=== PATIENT | male | born 1980 | race Caucasian/White ===

== ENCOUNTER 2020-05-18 10:22 | Outpatient (REF) | payer BC, SELFPAY | END 2020-05-18 10:23 | disposition home or self-care (01) | LOC: HO.LAB 10:22 | PROVIDERS: Visit Provider Internal Medicine | DX: Z20.828 Contact with and (suspected) exposure to other viral communicable diseases (principal) | CPT/HCPCS: C9803; U0003 ==

== ENCOUNTER 2020-05-29 10:29 | Outpatient (REF) | payer BC, SELFPAY | END 2020-05-29 10:30 | disposition home or self-care (01) | LOC: HO.LAB 10:29 | PROVIDERS: Visit Provider Internal Medicine | DX: Z20.828 Contact with and (suspected) exposure to other viral communicable diseases (principal) | CPT/HCPCS: 36415; C9803; U0003 ==

== ENCOUNTER 2020-06-20 07:42 | Outpatient (REF) | payer BC, SELFPAY | END 2020-06-20 07:43 | disposition home or self-care (01) | LOC: HO.LAB 07:42 | PROVIDERS: PCP Internal Medicine; Visit Provider Internal Medicine | DX: Z20.822 Contact with and (suspected) exposure to COVID-19 (principal) | CPT/HCPCS: 36415; C9803; U0003 ==

== ENCOUNTER 2020-07-20 08:51 | Outpatient (REF) | payer BC, SELFPAY ==
--- NOTE | ~2020-07-20 | US_ITS ---
EXAMINATION: US ABDOMEN COMPLETE CLINICAL INFORMATION: Elevated liver enzymes. Hematuria. COMPARISON: None. TECHNIQUE: Real-time imaging of the abdominal viscera. FINDINGS: PANCREAS: The visualized head and body of the pancreas appears unremarkable. Remainder of the pancreas is obscured by bowel gas. ABDOMINAL AORTA: The proximal, mid, and distal segments are normal in caliber. INFERIOR VENA CAVA: Visualized portions are normal. LIVER: Diffuse increased echogenicity. No focal hepatic lesion. There is no intrahepatic biliary duct dilatation seen. GALLBLADDER: Normal. The gallbladder is physiologically distended without evidence of stones, sludge, polyps, wall thickening or pericholecystic fluid. COMMON BILE DUCT: Normal in caliber measuring 0.3 cm in diameter. RIGHT KIDNEY: Normal. No hydronephrosis. No renal calculi or focal parenchymal lesions. The kidney measures 14.1 cm in maximum dimension. LEFT KIDNEY: Normal. No hydronephrosis. No renal calculi or focal parenchymal lesions. The kidney measures 13.3 cm in maximum dimension. SPLEEN: Normal. The spleen measures 12 cm in maximum dimension. FREE FLUID: None. US/US abdomen complete IMPRESSION: 1. There is generalized increase in hepatic echotexture, more commonly seen with hepatic steatosis. No focal hepatic mass or intrahepatic biliary duct dilatation is seen. 2. Partially visualized pancreas. Visualized portion of the pancreas appears unremarkable. 3. Otherwise unremarkable study.
== END 2020-07-20 08:52 | disposition home or self-care (01) ==
LOC: HO.HMGCX 08:51
PROVIDERS: Visit Provider Internal Medicine
DX: R31.9 Hematuria, unspecified (principal); R79.89 Other specified abnormal findings of blood chemistry
CPT/HCPCS: 76700

== ENCOUNTER 2020-08-14 07:38 | Outpatient (REF) | payer BC, SELFPAY ==
--- NOTE | ~2020-08-14 | XR_ITS ---
EXAMINATION: XR LUMBOSACRAL SPINE WITH OBLIQUES CLINICAL INFORMATION: Low back pain and sciatica COMPARISON: None TECHNIQUE: AP, both oblique, and lateral views of the lumbar spine. Lateral view of the lumbosacral junction. FINDINGS: There may be a transitional vertebral body segment or lumbarization of S1. Bone alignment is normal. No fracture or dislocation is seen. There is degenerative disc disease at L5-S1 and the S1-S2 or transitional segment sacral articulation. There is arthritis at the transitional transverse process articulation with the sacrum bilaterally. No pars defect is seen. XR/XR lumbar spine 4V min IMPRESSION: Probable transitional vertebral body segment with lumbarization of S1. Lower lumbar sacral spine degenerative disc disease.
== END 2020-08-14 07:39 | disposition home or self-care (01) ==
LOC: HO.LAB 07:38
PROVIDERS: Absent Provider Internal Medicine; PCP Internal Medicine; Visit Provider Internal Medicine
DX: M54.30 Sciatica, unspecified side (principal); Z20.822 Contact with and (suspected) exposure to COVID-19
CPT/HCPCS: 36415; 72110; C9803; U0003; U0005

== ENCOUNTER → 2020-08-23 08:14 | Outpatient (BNVA) | payer BC, SELFPAY | PROVIDERS: PCP Internal Medicine; Visit Provider Physician Assistant ==

== ENCOUNTER 2020-09-15 08:36 | Outpatient (REF) | payer BC, SELFPAY ==
[2020-09-15 09:03] LABS: COVID-19 Test Negative (Negative)
== END 2020-09-15 08:37 | disposition home or self-care (01) ==
LOC: HO.LAB 08:36
PROVIDERS: Visit Provider Internal Medicine
DX: Z20.822 Contact with and (suspected) exposure to COVID-19 (principal)
CPT/HCPCS: 36415; 87635; C9803

== ENCOUNTER 2020-10-19 08:02 | Day surgery (SDC) | payer BC, SELFPAY ==
[2020-10-12 15:26] VITALS: BMI 32.5
--- NOTE | 2020-10-17 15:02 | P.CONAN_ITS ---
Documented by User: Jazmín Figueroa 10/17/20 15:03 HPI - Anesthesia Eval Consult details Narrative: 40yo M for Colonoscopy PMFSH Active Problems Active Problems: All Active Problems (Updated 10/12/20 @ 15:00 by Ena Seay) Hematochezia (Acute) Past Medical History Medical History Allergic rhinitis due to pollen Elevated liver function tests Hematochezia Family History Family History Father Colon cancer Surgical History Surgical History History of esophagogastroduodenoscopy (EGD) Hx of appendectomy Social History Social History Household Members: Family Alcohol intake: current Alcohol intake frequency: a few times a month Use of substances other than those prescribed or required for medical reasons: No Have you been hit, kicked, punched, or otherwise hurt by someone within the past year? If so, by whom?: No Are you DNR?: No Advance Directives: No Advance Directives Information Provided: No Advance Directives on File: No Recently lost weight without trying: No Eating poorly because of decreased appetite: No Nutrition Risks: No Nutritional Risk Current occupational status: employed Current occupation: [employer] Allergies Allergy/AdvReac Type Severity Reaction Status Date / Time No Known Allergies Allergy Verified 10/19/20 08:19 Home Medications Medication Instructions Recorded Confirmed Last Taken Type albuterol sulfate 2 puff PO Q4-6H PRN 10/12/20 10/12/20 Unknown History fluticasone propionate [Flonase] 1 spray INTRANASAL DAILY 10/12/20 10/12/20 Unknown History Exam Exam Date and Time: October 17, 2020 1502 Height,Weight and Vital Signs: Height 5 ft 9 in Weight 99.79 kg Assessment and Plan Assessment Anesthesia Assessment: Chart Reviewed Documented by User: Abisai Lin MD 10/19/20 08:35 [facility] Past Medical History Medical History Allergic rhinitis due to pollen Elevated liver function tests Hematochezia Family History Family History Father Colon cancer Surgical History Surgical History History of esophagogastroduodenoscopy (EGD) Hx of appendectomy Social History Social History Household Members: Family Alcohol intake: current Alcohol intake frequency: a few times a month Use of substances other than those prescribed or required for medical reasons: No Have you been hit, kicked, punched, or otherwise hurt by someone within the past year? If so, by whom?: No Are you DNR?: No Advance Directives: No Advance Directives Information Provided: No Advance Directives on File: No Recently lost weight without trying: No Eating poorly because of decreased appetite: No Nutrition Risks: No Nutritional Risk Current occupational status: employed Current occupation: [employer] Allergies Allergy/AdvReac Type Severity Reaction Status Date / Time No Known Allergies Allergy Verified 10/19/20 08:19 Home Medications Medication Instructions Recorded Confirmed Last Taken Type albuterol sulfate 2 puff PO Q4-6H PRN 10/12/20 10/12/20 Unknown History fluticasone propionate [Flonase] 1 spray INTRANASAL DAILY 10/12/20 10/12/20 Unknown History Exam Airway Mallampati Class: II TM Dist: >3cm Neck ROM: Full Assessment and Plan Assessment Anesthesia Assessment: Anesthesia Plan Discussed, PAT Visit and Chart Reviewed Final Anesthetic Review NPO: Yes ASA Class: II Final Preanesthetic Review: No Changes in Pt Med Stat, Meds/Allgs Chart Reviewed, Consent Obtained/Reviewed and Anes Risks/Benef Reviewed Patient Risk: Low Procedure Risk: Low Anesthetic Plan Anesthetic Plan: MAC: Disposition: Standard PACU
[2020-10-19 08:20] VITALS: BP 124/76; PULSE 95; RESP 15; TEMP 36.1; O2SAT 97
[2020-10-19] MEDS: Lactated Ringers 1,000 ML 100 ML IVCONT (08:45)
--- NOTE | 2020-10-19 08:52 | MHC.SHP ---
Pre-Procedural Eval Section B Chief Complaint: Hematochezia Details of Present Illness: RLQ pain Relevant Family History (Specify if Yes): No Relevant Social History: None Present Medications: see Short Stay Collaborative assessment Medical History: Significant History (anal fissure) History of Previous Operations: No relevant previous surgery Allergies: Allergies Allergy/AdvReac Type Severity Reaction Status Date / Time No Known Allergies Allergy Verified 10/19/20 08:19 Review of Systems Sugical H&P ROS: Negative: Constitution, Cardiovascular, Respiratory, Neurological, Psychiatric, Hem-Onc, Allergic/Immunologic, Gastrointestinal, Genitourinary, Musculoskeletal, Integumentary, Endocrine and Eyes/Ears/Nose/Throat Exam Surgical H&P Exam: Normal: HEENT, Normal: Heart, Normal: Lungs, Normal: Extremities, Normal: Abdomen, Normal: Skin and Normal: Neurological Plan Diagnosis/Plan: Unchanged I have reviewed the history and physical and performed a pertinent physical examination on my patient. No changes have occurred unless specified.
--- NOTE | 2020-10-19 09:17 | P.BOP_ITS ---
Brief Operative Note Date of Service: 10/19/20 Pre-op diagnosis: blood in stool, RLQ pain Post-op diagnosis: same Procedure: see op note Surgeon: Eloina Angel MD Anesthesia: MAC Was an Sewing Machine Repairer Helper used for this Procedure?: No Estimated blood loss (mL): 0 Condition: stable Disposition: PACU
--- NOTE | 2020-10-19 09:18 | P.OP_ITS ---
Operative Note Operative Note Date of Service: 10/19/20 Narrative: Operative Information Procedure Description: Colonoscopy COLONOSCOPY Instrument: Olympus variable stiffness pediatric scope 190L Colonoscopy Monitoring: Vital signs and clinical assessment, continuous EKG monitoring, Pulse oximetry, Carbon Dioxide monitoring and blood pressure monitoring were done throughout the procedure. Colon withdrawal time was 11 minutes. Procedure: The patient was placed in the left lateral decubitis position and pre-procedure medications were administered. After a digital rectal examination of the ano-rectum, the video colonoscope was inserted into the rectum and advanced through the colon to the cecum/TI. The colonoscope was slowly withdrawn in a retrograde panoramic fashion and the colon mucosa was carefully examined including a retroflexed view of the rectum. Findings and interventions are described below. Procedure Difficulty:easy Findings: Terminal Ileum-scattered ileitis, bx taken Cecum:normal, bx taken Ascending Colon: normal, bx taken Transverse Colon -normal Descending Colon:normal Sigmoid Colon: normal Rectum: Retroflexion with small internal hemorrhoids, grade II Anorectum - internal hemorrhoids seen at anal verge Colon preparation: [place] Bowel Preparation Scale Right colon; 3 Transverse colon: 3 Left colon; 3 (0 = Unprepared colon segment with mucosa not seen due to solid stool that cannot be cleared. 1 = Portion of mucosa of the colon segment seen, but other areas of the colon segment not well seen due to staining, residual stool and/or opaque liquid. 2 = Minor amount of residual staining, small fragments of stool and/or opaque liquid, but mucosa of colon segment seen well. 3 = Entire mucosa of colon segment seen well with no residual staining, small fragments of stool or opaque liquid) Impression and Post Procedure Diagnosis: ileitis internal hemorrhoids Plan: High fiber diet leaflet Avoid straining at stool, epsom salts and sitz bath, anusol supps or cream Repeat Colonoscopy aged 45 or earlier if clinically indicated check nsaid usage history, might need CTe or VCE for further work up for crohns Above findings were reviewed with the patient and relevant handouts were provided if indicated.
[2020-10-19 09:47] VITALS: BP 118/78; PULSE 85; RESP 16; TEMP 36.2; O2SAT 98
[2020-10-19 10:02] VITALS: BP 118/76; PULSE 82; RESP 18; O2SAT 97
[2020-10-19 10:13] VITALS: TEMP 36.6
== END 2020-10-19 10:38 | disposition home or self-care (01) ==
PROVIDERS: PCP Internal Medicine; Visit Provider Internal Medicine Gastroenterology
PROC: 0DJD8ZZ Inspection of Lower Intestinal Tract, Via Natural or Artificial Opening Endoscopic (ICD-10-PCS; CPT 45378; principal; 2020-10-19 09:30)
DX: K92.1 Melena (principal); K50.00 Crohn's disease of small intestine without complications; K64.1 Second degree hemorrhoids; R79.89 Other specified abnormal findings of blood chemistry; J30.9 Allergic rhinitis, unspecified; Z79.899 Other long term (current) drug therapy
CPT/HCPCS: 45380; 88305

== ENCOUNTER 2020-11-08 08:37 | Outpatient (REF) | payer BC, SELFPAY ==
--- NOTE | 2020-11-08 08:40 | PFT_ITS ---
INDICATION: Wheezing. SPIROMETRY: The FEV1 to FVC of 83% with an FEV1 of 4.02 L, which is 97% predicted, an FVC of 4.85 L, which is 95% predicted. No significant response to bronchodilators noted. Normal maximum voluntary ventilation. LUNG VOLUMES: Total lung capacity 93% predicted with an expiratory reserve volume of 65% predicted. DIFFUSION CAPACITY: DLCO 96% predicted. Flow volume loop appears to be consistent with normal lung mechanics. INTERPRETATION: No obstructive nor restrictive ventilatory defects identified. No significant response to bronchodilators noted. Normal lung volumes and normal diffusion capacity. This is consistent with normal lung mechanics. Consider a methacholine challenge to further address the question of hyper-reactive airways and asthma. Gino Muniz MD MR/MODL / [id number]
== END 2020-11-08 08:38 | disposition home or self-care (01) ==
LOC: HO.RESP 08:37
PROVIDERS: PCP Internal Medicine; Visit Provider Internal Medicine
DX: R06.2 Wheezing (principal)
CPT/HCPCS: 94060; 94727; 94729

== ENCOUNTER → 2020-12-07 08:03 | Outpatient (BNVA) | payer BC, SELFPAY | PROVIDERS: PCP Internal Medicine; Visit Provider Physician Assistant ==

== ENCOUNTER 2024-01-29 11:49 | Outpatient (REF) | payer BC, SELFPAY ==
[2024-01-29 13:37] LABS: MANUAL DIFF FLAG NO
[2024-01-29 13:44] LABS: Basophils Percent Auto 0.3 % (0-2); Eosinophils Absolute Auto 0.2 X10*3/uL (0.0-0.4); Eosinophils Percent Auto 3.2 % (0-4); Hematocrit 43.4 % (42.0-52.0); Hemoglobin 14.6 g/dl (14.0-18.0); Imm Gran Abs Auto 0.02 X10*3/uL (0.00-0.03); Imm Gran Pct Auto 0.3 % (0.0-0.4); Lymphocytes Absolute Auto 1.4 X10*3/uL (1.2-4.9); Lymphocytes Percent Auto 21.7 % (20-40); Mean Corpuscular HGB Conc 33.6 g/dl (31.0-36.0); Mean Corpuscular Hemoglobin 30.1 pg (27.0-33.0); Mean Corpuscular Volume 89.5 fL (80.0-98.0); Mean Platelet Volume 10.7 fL (9.4-12.4); Monocytes Absolute Auto 0.6 X10*3/uL (0.1-1.2); Monocytes Percent Auto 9.4 % (2-11); Neutrophils Absolute Auto 4.3 x10*3/uL (2.0-8.3); Neutrophils Percent Auto 65.1 % (45-73); Platelet Count 258 X10*3/uL (160-400); Red Blood Count 4.85 X10*6/uL (4.60-5.80); Red Cell Distribution Width 13.4 % (11.0-16.0); White Blood Count 6.6 X10*3/uL (4.8-10.8)
[2024-01-29 13:57] LABS: Alanine Aminotransferase 18 U/L (0-40); Albumin Level 4.4 g/dL (3.5-5.0); Alkaline Phosphatase 61 U/L (39-117); Anion Gap 11 (12-20); Aspartate Amino Transferase 13 U/L (5-37); Bilirubin Total 0.4 mg/dL (0.0-1.0); Blood Urea Nitrogen 15 mg/dL (9-16); Calcium 9.5 mg/dL (8.4-10.2); Carbon Dioxide 22 mmol/L (22-29); Chloride 110 mmol/L (96-108); Estimated Glomerular Filt Rate > 60; Glucose Random 93 mg/dL (60-115); Lipase 39 U/L (8-78); Potassium 3.7 mmol/L (3.3-5.1); Sodium 139 mmol/L (135-145); Total Protein 7.7 g/dL (6.5-8.0)
== END 2024-01-29 11:50 | disposition home or self-care (01) ==
LOC: HO.HHCL 11:49
PROVIDERS: Visit Provider Internal Medicine
DX: R19.7 Diarrhea, unspecified (principal)
CPT/HCPCS: 36415; 80053; 83690; 85025

== ENCOUNTER 2024-01-30 06:22 | Outpatient (REF) | payer BC, SELFPAY ==
[2024-01-30 12:48] LABS: Adenovirus F 40/41 Not Detected (Not Detect.); Astrovirus Not Detected (Not Detect.); Campylobacter Not Detected (Not Detect.); Cryptosporidium Not Detected (Not Detect.); Cyclospora cayetanensis Not Detected (Not Detect.); E. coli EAEC Not Detected (Not Detect.); E. coli EPEC Not Detected (Not Detect.); E. coli ETEC Not Detected (Not Detect.); E. coli STEC Not Detected (Not Detect.); Entamoeba histolytica Not Detected (Not Detect.); Giardia lamblia Not Detected (Not Detect.); Norovirus GI/GII Not Detected (Not Detect.); Plesiomonas shigelloides Not Detected (Not Detect.); Rotavirus A Not Detected (Not Detect.); Salmonella Not Detected (Not Detect.); Sapovirus Not Detected (Not Detect.); Shigella sp./EIEC Not Detected (Not Detect.); Vibrio Not Detected (Not Detect.); Vibrio Cholerae Not Detected (Not Detect.); Yersinia enterocolitica Not Detected (Not Detect.)
== END 2024-01-30 06:23 | disposition home or self-care (01) ==
LOC: HO.HHCL 06:22
PROVIDERS: Visit Provider Internal Medicine
DX: R19.7 Diarrhea, unspecified (principal)
CPT/HCPCS: 87507

== ENCOUNTER 2024-08-27 09:08 | Outpatient (REF) | payer BC, SELFPAY ==
--- OUTSIDE RECORDS SUMMARY | 2024-08-27 09:54 | XMS_ITS | Encounter Summary ---
Author Organization [employer] [facility] Address [address] [place] [address] [address] [place] [address] Care Team Providers Care Box Inspector Name Role Phone Lulu Muniz MD Primary Care Provider + Encounter Details Date Type Department Care Team (Latest Contact Info) Description 02/08/2019 Abstract C CONVERSIONS Dental, Provider, DDS Social History Tobacco Use Types Packs/Day Years Used Date Smoking Tobacco: Never Assessed Sex and Gender Information Value Date Recorded Sex Assigned at Male 03/25/2022 10:36 AM EDT Legal Sex Male 10:36 AM EDT Gender Identity Male 03/25/2022 10:36 AM EDT Sexual Orientation Straight 03/25/2022 10 :36 AM EDT documented as of this encounter Plan of Treatment Not on file documented as of this encounter Visit Diagnoses Not on filedocumented in this encounter Care Teams Box Inspector Relationship Specialty Start Date End Date Lulu Muniz MD [address] [place] [id number] PCP - General Family Medicine 06/02/20 documented as of this encounter
--- OUTSIDE RECORDS SUMMARY | 2024-08-27 09:55 | XMS_ITS ---
Author Organization [facility] Address [address] [place] [address] Care Team Providers Care Design Director Name Role Phone Nichole Hernandez [phone] Encounters Encounter Location Date Provider Diagnosis [facility] [address] [place] [address] 08/16/2024 Nichole Hernandez Hyperlipidemia, unspecified hyperlipidemia type E78.5 and Fatty liver K76.0 Assessments Encounter Date Diagnosis (ICD Code) Assessment Notes Treatment Notes Treatment Clinical Notes Section Notes 08/16/2024 Hyperlipidemia, unspecified hyperlipidemia type (ICD-10 - E78.5) 08/16/2024 Fatty liver (ICD-10 - K76.0) Plan Of Treatment Future Test Test Name Order Date CMP([facility]) 08/16/2024 Lipid Profile ([facility]) 08/16/2024 Progress Notes * Samantha CULVERB:06/1980 (44 yo M)Acc No.[id number]:08/16/2024 Patient:?Vania CULVER :1980???Age:44 Y???Sex:Male Address: [place], [address] Subjective: * Chief Complaints: * ??? * Medical History:? * Surgical History:? * Hospitalization/Major Diagno stic Procedure:? * Medications:? Objective: * Vitals:? * Physical Examination:? * ? Assessment: * Assessment: 1.?Hyperlipidemia, unspecifi ed hyperlipidemia type - E78.5???2.?Fatty liver - K76.0??? Plan: * Treatment: 2.?Fatty liver?LAB: Lipid Profile ([facility]) (Ordered for 08/16/2024) ?LAB: CMP([facility]) (Ordered for 08/16/2024) * Procedure Codes:? * true * Date:? Generated for Isacc hill/Jose/Philippe on:?08/27/2024 09:54 AM EDT
--- OUTSIDE RECORDS SUMMARY | 2024-08-27 09:55 | XMS_ITS | Encounter Summary ---
Author Organization [facility] Address [address] [place] [address] [address] [place] [address] Care Team Providers Care Health And Wellness Coordinator Name Role Phone Lulu Muniz MD Primary Care Provider + Encounter Details Date Type Department Care Team (Latest Contact Info) Description 10/10/2020 Abstract [facility] CONVERSIONS Dental, Provider, DDS Social History Tobacco [...] on filedocumented in this encounter Care Teams Health And Wellness Coordinator Relationship Specialty Start Date End Date Lulu Muniz MD [address] [place] [id number] PCP - General Family Medicine 06/02/20 documented as of this encounter
--- OUTSIDE RECORDS SUMMARY | 2024-08-27 09:55 | XMS_ITS ---
Author Organization [facility] Address [address] [place] [address] Care Team Providers Care Varnishing Unit Tool Setter Name Role Phone Nichole Hernandez Paulina [phone] Medications Medication SIG (Take, Route, Frequency, Duration) Notes Start Date End Date Status Wegovy 1.7 MG/0.75ML 1.7 mg injection Subcutaneous weekly for 30 days 4pens =1 box = 30 day supply 11/04/2023 Active Encounters Encounter Location Date Provider Diagnosis [facility] [address] [place] [address] 06/23/2024 Nichole Hernandez Plan Of Treatment Medication Medication Name Sig Start Date Stop Date Notes Wegovy 1.7 MG/0.75ML 1.7 mg injection Subcutaneous weekly for 30 days 11/04/2023 4pens =1 box = 30 day supply Progress Notes * Ada CULVER:06/1980 (44 yo M)Acc No.[id number]:06/23/2024 Patient:?Vania CULVER :1980???Age:44 Y???Sex:Male Address: [place], [address] * Refills? Refill Wegovy Solution Auto-injector, 1.7 MG/0.75ML, Subcutaneous, 3, 1.7 mg injection, weekly, 30 days, Refills=0 * true * Date:? Generated for Printi ng/Faxing/eTransmitting on:?08/27/2024 09:54 AM EDT
--- OUTSIDE RECORDS SUMMARY | 2024-08-27 09:55 | XMS_ITS | Clinical Summary ---
Author Organization [employer] Address [address] [place] [address] 7 [place] [address] Care Team Providers Care Forest Nursery Worker Name Role Phone Lulu Muniz MD Primary Care Provider + Allergies No known active allergies Medications fluticasone (Flonase Sensimist) 27.5 MCG/SPRAY nasal spray Active Ibuprofen (Advil Migraine) capsule 5 Active azelastine (Astelin) 0.1 % nasal sprayIndication s:Chronic rhinitis Administer 1 spray into each nostril 2 times daily. Use in each nostril as directed 30 mL 12 3 Active loratadine (Claritin) 10 MG tabletIndicatio ns:Chronic rhinitis Take 1 tablet (10 mg) by mouth in the morning. 30 tablet 3 Active Active Problems Problem Noted Date Diagnosed Date LLQ abdominal pain 01/29/2024 Assessment & Plan (01/29/2024 12:01 PM EDT): Patient here for a sick visit with c/o new onset of Abdominal pain, associated with N/V/D since last Fridays. Pt recalls eating at [employer] but he was the only one who felt sick the next day. He also reports having been on a weight loss regimen with Wegovy x 5 months. Pt describes the pain as severe at times, mainly localized on his mid abdomen, periumbilical and LLQ area. Pt reports Nausea and Vomiting but is able to drink fluids and keep them down. Diarrhea is described as watery and mucous, NO blood. Etiology ? Viral Gastro VS. Acute diverticulitis, but given his Hx of taking Wegovy need to rule out Acute Pancreatitis as well Plan: Increase PO fluids as tolerated, Zofran PRN for Nausea. Obtain CBC, Lipase, Stool Cx. C. Diff. CT of Abdomen and Pelvis with IV Contrast. Pt instructed to present to the nearest ER if symptoms do not improve or if his abdominal pain worsens. Patient verbalized understanding. Facial paresthesia 07/03/2022 Allergic rhinitis due to pollen 07/03/2022 Gingival cyst of adult 07/03/2022 Hematochezia 07/03/2022 Incontinence of feces with fecal urgency 023 Internal hemorrhoids 07/03/2022 Assessment & Plan (07/03/2022 11:46 AM EST): Use cortisone/pramoxine rectal cream Irritable bowel syndrome with diarrhea Assessment & Plan (07/03/2022 11:46 AM EST): Controlled with diet. Chronic rhinitis 07/03/2022 Left inguinal pain 07/03/2022 Wart on thumb 07/03/2022 Acute back pain with sciatica 07/02/2022 Elevated liver function tests 07/02/2022 IFG (impaired fasting glucose) 07/02/2022 Assessment & Plan (07/03/2022 11:44 AM EST): Fairly well controlled. A1c is less than 5.7 Counseled re more frequent low calorie/carb meals. Encouraged physical activity as tolerated. FU in 6 months with labs Sciatic leg pain 07/02/2022 Assessment & Plan (07/03/2022 11:43 AM EST): Stretching exercises discussed with patient to do at home Refer to PT Use Tylenol prn Social History Tobacco Use Types Packs/Day Years Used Date Smoking Tobacco: Never Passive Smoke Exposure: Never Smokeless Tobacco: Never Tobacco Cessation:Counseling Given: Not Answered Alcohol Use Standard Drinks/Week Comments Yes 0 (1 standard drink = 0.6 oz pur e alcohol) Rare once every 6 month Housing Stability Answer Date Recorded What is your housing situation today? I have brenton alvarez 03/31/[address] you li ve. Do you have problems with any of the following? None of the above 03/31/2023 Food Insecurity Answer Date Recorded Within the past 12 months, y ou worried that your food would run out before you got money to buy more: Never True 03/31/2023 Within the past 12 months,th e food you bought just didn't last and you didn't have enough money to get more: Never True 10/2022 Transportation Answer Date Recorded In the past 12 months, has l ack of transportation kept you from medical appts, meetings, work or from getting things needed for daily living? No 03/31/2023 Utilities Answer Date Recorded In the past 12 months, has t he electric, gas, oil or water company threatened to shut off services in your home? No 03/31/2023 Depression Answer Date Recorded Patient Health Questionnaire-2 Score 0 07/02/2022 Sex and Gender Information Value Date Recorded Sex Assigned at Male 03/25/2022 10:36 AM EDT Legal Sex Male 10:36 AM EDT Gender Identity Male 03/25/2022 10:36 AM EDT Sexual Orientation Straight 03/25/2022 10 :36 AM EDT Last Filed Vital Signs Vital Sign Reading Time Taken Comments Blood Pressure 129/79 01/29/2024 11:11 AM EDT Pulse 84 01/29/2024 11:11 AM EDT Temperature 36.1 ??C (96.9 ??F) 01/29/2024 11:11 AM E DT Respiratory Rate 20 01/29/2024 11:11 AM EDT Oxygen Saturation 98% 01/29/2024 11:11 AM EDT Inhaled Oxygen Concentration - - Weight 95.1 kg (209 lb 9.6 oz) 01/29/2024 11:11 AM EDT Height 176.5 cm (5' 9.5 ) 01/29/2024 11:11 AM ED T Body Mass Index 30.51 01/29/2024 11:11 AM EDT Plan of Treatment Health Maintenance Due Date Last Done Comments Alcohol/Substance Use Screening 1994 Family Planning (PISQ) 1997 Hepatitis B Vaccines (1 of 3 - 19+ 3-dose series) 2001 Depression Screening 07/02/2023 07/02/2022, 07/02/2022 SDOH Screening 07/02/2023 07/02/2022 COVID-19 Vaccine (4 - 2023-2 5 season) 2024 03/29/2022, 04/11/2021, 08/16/2020 Influenza Vaccine (#1) 2024 , 03/15/2021, 02/21/2020 Tobacco Screening 01/28/2025 01/29/2024 Lipid Panel 06/14/2025 06/14/2020 DTaP/Tdap/Td Vaccines (2 - T d or Tdap) 07/17/2030 07/17/2020 Zoster Vaccines (1 of 2) 2032 RSV Patients and Patients Aged 60 years or older (1 - 1-dose 75+ series) 2057 HIV Screening Completed 10/18/2020 Hepatitis C Screening Completed 10/18/2020 HIB Vaccines Aged Out No longer eligi ble based on patient's age to complete this topic HPV Vaccines Aged Out No longer eligi ble based on patient's age to complete this topic Hepatitis A Vaccines Aged Out No long er eligible based on patient's age to complete this topic IPV Vaccines Aged Out No longer eligi ble based on patient's age to complete this topic Meningococcal Vaccine Aged Out No deepa prasanna eligible based on patient's age to complete this topic Pneumococcal Vaccine: Pediatrics (0 to 5 Years) and At-Risk Patients (6 to 49) Years) Aged Out No longer eligible b ased on patient's age to complete this topic RSV under 20 months Aged Out No longe r eligible based on patient's age to complete this topic Rotavirus Vaccines Aged Out No longer eligible based on patient's age to complete this topic Procedures Procedure Name Priority Date/Time Associated Diagnosis Comments ZZZ HISTORICAL HEPATITIS C AB W/REFL TO HCV RNA, QN, PCR Routine 10/18/2020 9:21 AM EDT HIV 1/2 ANTIGEN/ANTIBODY, FOURTH GENERATION W/RFL Routine 10/18/2020 9:21 AM EDT LIPID PANEL, STANDARD Routine 06/14/2020 1:12 PM EST from Last 3 Months or Most Recently Relevant to Health Maintenance Results * HEPATITIS C AB W/REFL TO HCV RNA, QN, PCR (10/18/2020 9:21 AM EDT) HEPATITIS C ANTIBODY NON-REACT VASYL NON-REACT VASYL [facility] INDEX 0.01 <1.00 [facility] Comment: ?? HCV antibody was non-reactive. There is no laboratory ?? evidence of HCV infection. ?? In most cases, no further action is required. However, if recent HCV exposure is suspected, a test for HCV RNA (test code 41689) is suggested. ?? For additional information please refer to http://Mamapedia.Taxify/faq/RUT36s9 (This link is being provided for informational/ educational purposes only.) ?? 10/18/2020 9:21 AM EDT Lulu Muniz MD HISTORICAL/NON ORDERABLE LABS Final Result [facility] [address] * HIV 1/2 ANTIGEN/ANTIBODY,FOURTH GENERATION W/RFL (10/18/2020 9:21 AM EDT) HIV-1/2 ANTIGEN AND ANTIBODIES, 4TH GENERATION W/ REFLEX NON-REACT VASYL NON-REACT VASYL [facility] Comment: HIV-1 antigen and HIV-1/HIV-2 antibodies were not detected. There is no laboratory evidence of HIV infection. ?? PLEASE NOTE: This information has been disclosed to you from records whose confidentiality may be protected by state law. ??If your state requires such protection, then the state law prohibits you from making any further disclosure of the information without the specific written consent of the person to whom it pertains, or as otherwise permitted by law. A general authorization for the release of medical or other information is NOT sufficient for this purpose. ? For additional information please refer to http://Mamapedia.Taxify/faq/ROL035 (This link is being provided for informational/ educational purposes only.) ? The performance of this assay has not been clinically validated in patients less than 2 years old. ?? 10/18/2020 9:21 AM EDT us Lulu Muniz MD LAB BLOOD ORDERABLES Fin al Result Performing Organization Address [facility] Co de Phone Number [facility] [address] [place] [address], * (ABNORMAL) LIPID PANEL, STANDARD (06/14/2020 1:12 PM EST) Chol/HDLC Ratio 4.6 <5.0 (calc) [facility] Cholesterol, Total 148 <200 mg/dL [facility] HDL Cholesterol 32(L) > OR = 40 mg/dL [facility] LDL Cholesterol 90 mg/dL (calc) [facility] Comment: Reference range: <100 ?? Desirable range <100 mg/dL for primary prevention; ?? <70 mg/dL for patients with CHD or diabetic patients ?? with > or = 2 CHD risk factors. ?? LDL-C is now calculated using the Juan ?? calculation, which is a validated novel method providing ?? better accuracy than the Friedewald equation in the ?? estimation of LDL-C. ?? Franklin SS et al. NANI. 2013;310(19): 1084-6121 ?? (http://education.Ceregene/faq/BVY963) Non-HDL Cholesterol 116 <130 mg/dL (calc) [facility] Comment: For patients with diabetes plus 1 major ASCVD risk ?? factor, treating to a non-HDL-C goal of <100 mg/dL ?? (LDL-C of <70 mg/dL) is considered a therapeutic ?? option. Triglycerides 165(H) <150 mg/dL [facility] 06/14/2020 1:12 PM EST us Lulu Muniz MD LAB BLOOD ORDERABLES Fin al Result Performing Organization Address [facility] Co de Phone Number [facility] [address] from Last 3 Months or Most Recently Relevant to Health Maintenance Insurance [facility] PPO Care Teams Forest Nursery Worker Relationship Specialty Start Date End Date Lulu Muniz MD [address] [place] [id number] PCP - General Family Medicine 06/02/20
--- OUTSIDE RECORDS SUMMARY | 2024-08-27 09:55 | XMS_ITS | Encounter Summary ---
Author Organization [employer] [facility] Address [address] [place] [address] 7 [place] [address] Care Team Providers Care Product Ambassador Name Role Phone Lulu Muniz MD Primary Care Provider + Encounter Details Date Type Department Care Team (Latest Contact Info) Description 08/10/2019 Abstract C CONVERSIONS Dental, Provider, DDS Social [...] on filedocumented in this encounter Care Teams Product Ambassador Relationship Specialty Start Date End Date Lulu Muniz MD [address] [place] [id number] PCP - General Family Medicine 06/02/20 documented as of this encounter
--- OUTSIDE RECORDS SUMMARY | 2024-08-27 09:55 | XMS_ITS | Patient Health Record ---
Author Organization [facility] Address [address] [place] [address] Care Team Providers Care Bi Data Architect Name Role Phone Nichole Hernandez [phone] Reason For Referral No Information Medications Medication SIG (Take, Route, Frequency, Duration) Notes Start Date End Date Status Wegovy 1.7 MG/0.75ML 1.7 mg injection Subcutaneous weekly for 30 days 4pens =1 box = 30 day supply 11/04/2023 Active Problems Problem Type SNOMED Code ICD Code Onset Dates Problem Status W/U Status Risk Notes Problem [id number] Fatty liver (K76.0) Active confirmed Problem Obesity (692736190) Obesity (BMI 30-39.9) (E66.9) Active confirmed Problem [id number] Hyperlipidemia, unspecified hyperlipidemia type (E78.5) Active confirmed Encounters Encounter Location Date Provider Diagnosis [facility] [address] [place] [address] 10/13/2023 [facility] Obesity (BMI 30-39.9 ) E66.9 [facility] [address] [place], [place] [phone] 11/04/2023 [facility] [address] [place], [place] [phone] 11/12/2023 Tamer Mary Fatty liver K76.0 [facility] [address] [place], [place] [id number] 11/26/2023 T[facility] Mary [facility] [address] [place], [place] [phone] 12/31/2023 Tamer Mary Hyperlipidemia, unspecified hyperlipidemia type E78.5 and Fatty liver K76.0 [facility] [address] [place], [place] [phone] 01/12/2024 [facility] [address] [place] [phone] 03/18/2024 [facility] [address] [place] [address] 04/15/2024 [facility] [address] [place] [address] 06/23/2024 [facility] [address] [place] [phone] 08/16/2024 [facility] Hyperlipidemia, unspecified hyperlipidemia type E78.5 and Fatty liver K76.0 Assessments Encounter Date Diagnosis (ICD Code) Assessment Notes Treatment Notes Treatment Clinical Notes Section Notes 10/13/2023 Obesity (BMI 30-39.9) (ICD-10 - E66.9) 11/12/2023 Fatty liver (ICD-10 - K76.0) 12/31/2023 Hyperlipidemia, unspecified hyperlipidemia type (ICD-10 - E78.5) 08/16/2024 Hyperlipidemia, unspecified hyperlipidemia type (ICD-10 - E78.5) 08/16/2024 Fatty liver (ICD-10 - K76.0) 12/31/2023 Fatty liver (ICD-10 - K76.0) Plan Of Treatment Future Test Test Name Order Date CMP([facility]) 10/13/2023 Lipid Profile ([facility]) 10/13/2023 Hemoglobin A1C([facility]) 10/13/2023 TSH Reflex to Free T4 ([facility]) 10/12 CBC with Differential (AUTO) 10/13/2023 FIBROSCAN EXAMINATION 11/12/2023 Lipid Profile ([facility]) 12/31/2023 ALT (SGPT)([facility]) 12/31/2023 AST (SGOT)([facility]) 12/31/2023 CMP([facility]) 08/16/2024 Lipid Profile ([facility]) 08/16/2024 Insurance Providers Payer Name Payer Address Payer Phone Subscriber Number Group Number Insured Name Patient Relationship to Insured Coverage Start Date Coverage End Date [place] [address] [place] [address] [phone] [id number] Eusebio Culver Self - patient is the insured 3
--- OUTSIDE RECORDS SUMMARY | 2024-08-27 09:55 | XMS_ITS | Clinical Summary ---
Author Organization [employer] [facility] Address [address] [place] [address] Care Team Providers Care Type Bar And Segment Assembler Name Role Phone Unavailable Primary Care Provider Unavailabl e Social History Tobacco Use Types Packs/Day Years Used Date Smoking Tobacco: Never Assessed Sex and Gender Information Value Date Recorded Sex Assigned at Not on file Legal Sex Male 11:27 PM EST Gender Identity Not on file Sexual Orientation Not on file Plan of Treatment Health Maintenance Due Date Last Done Comments DTaP,Tdap,and Td Vaccines (1 - Tdap) 2001 Hepatitis B Vaccines (1 of 3 - 19+ 3-dose series) 2001 COVID-19 Vaccine (2023-2 5 season) 2024 Influenza Vaccine (#1) 2024 HIB Vaccines Aged Out No longer eligi [...] on patient's age to complete this topic MMR Vaccines Aged Out No longer eligi ble based on patient's age to complete this topic Meningococcal ACWY Vaccine Aged Out N o longer eligible based on patient's age to complete this topic Meningococcal B Vacine Aged Out No lo nger eligible based on patient's age to complete this topic Pneumococcal Vaccine: Pediat rics (0 to 5 Years) and At-Risk Patients (6 to 64 Years) Aged Out No longer eligible b ased on patient's age to complete this topic RSV Immunization Patients Un alonso 20 months Aged Out No longer eligible b ased on patient's age to complete this topic Varicella Vaccines Aged Out No longer eligible based on patient's age to complete this topic
--- OUTSIDE RECORDS SUMMARY | 2024-08-27 09:55 | XMS_ITS ---
Author Organization [facility] Address [address] [place] [address] Care Team Providers Care Suture Polisher Name Role Phone Nichole Hernandez Unavailable [phone] Medications Medication SIG (Take, Route, Frequency, Duration) Notes Start Date End Date Status Wegovy 1.7 MG/0.75ML 1.7 mg injection Subcutaneous weekly for 30 days Pa approved 4pens =1 box = 30 day supply 11/04/2023 Active Encounters Encounter Location Date Provider Diagnosis [facility] [address] [place] [address] 04/15/2024 Nichole Hernandez Plan Of Treatment Medication Medication Name Sig Start Date Stop Date Notes Wegovy 1.7 MG/0.75ML 1.7 mg injection Subcutaneous weekly for 30 days 11/04/2023 Pa approved 4pens =1 box = 30 day supply Progress Notes * Eusebio CULVERDOB:06/1980 (43 yo M)Acc No.[id number]:04/15/2024 Patient:?Vania CULVER :1980???Age:43 Y???Sex:Male Address: [place], [address] * Refills? Refill Wegovy Solution Auto-injector, 1.7 MG/0.75ML, Subcutaneous, 3, 1.7 mg injection, weekly, 30 days, Refills=0 * true * Date:? Generated for Printi ng/Faxing/eTransmitting on:?08/27/2024 09:55 AM EDT
[2024-08-27 12:17] LABS: Alanine Aminotransferase 22 U/L (0-40); Albumin Level 4.1 g/dL (3.5-5.0); Alkaline Phosphatase 52 U/L (39-117); Anion Gap 10 (12-20); Aspartate Amino Transferase 16 U/L (5-37); Bilirubin Total 0.4 mg/dL (0.0-1.0); Blood Urea Nitrogen 18 mg/dL (9-16); Calcium 9.2 mg/dL (8.4-10.2); Carbon Dioxide 28 mmol/L (22-29); Chloride 110 mmol/L (96-108); Cholesterol 153 mg/dL (<200); Estimated Glomerular Filt Rate > 60; Glucose Random 85 mg/dL (60-115); HDL Cholesterol 38 mg/dL (>40); LDL Cholesterol Calculated 100 mg/dL (<100); Potassium 4.6 mmol/L (3.3-5.1); Sodium 143 mmol/L (135-145); Total Protein 6.9 g/dL (6.5-8.0); Triglycerides 77 mg/dL (<150)
== END 2024-08-27 09:09 | disposition home or self-care (01) ==
LOC: HO.HHCL 09:08
PROVIDERS: Visit Provider Internal Medicine Endocrinology, Diabetes & Metabolism
DX: E78.5 Hyperlipidemia, unspecified (principal); K76.0 Fatty (change of) liver, not elsewhere classified
CPT/HCPCS: 36415; 80053; 80061